=== PATIENT | male | born 1965 | race Caucasian/White ===

== ENCOUNTER 2020-11-15 20:12 | Observation (INO) ==
[2020-11-15] MEDS ORDERED: SODIUM CHLORIDE 0.9% 1000ML 1,000 ML IV STA (20:41)
--- NOTE | 2020-11-15 20:48 | Emergency Department Note ---
History of Present Illness General Chief complaint: Rectal Bleed Stated complaint: BLEEDING FROM BUTT Time Seen by Provider: 11/15/20 20:32 Source: patient Mode of arrival: ambulatory Limitations: no limitations History of Present Illness This patient comes in having rectal bleeding. 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 He went to bed and slept today till noon he had a bowel movement today that was not soft and had just a small amount of blood on the paper mostly. He has a history of diverticulitis and started taking antibiotics yesterday and he feels like he is actually doing a lot better. He has some minimal right-sided abdominal discomfort. Denies chest pain or shortness of breath he said the Covid vaccine no lightheadedness or dizziness. He is on no blood thinners. No abdominal surgery. No injury. No sick contacts. No travel. He does have a history of gastric ulcers and says that he has been using NSAIDs recently Home Medications Medication Instructions Recorded Confirmed Type albuterol sulfate 90 mcg/actuation 1 - 2 puff INHALATION DIRECTED 11/15/20 11/15/20 History aerosol inhaler (Ventolin HFA) PRN amoxicillin 875 mg-potassium 1 tab PO BID 11/15/20 11/15/20 History clavulanate 125 mg tablet (Augmentin) cetirizine 10 mg tablet (Allergy 10 mg PO DAILY 11/15/20 11/15/20 History Relief (cetirizine)) diclofenac sodium 75 mg 75 mg PO BID 11/15/20 11/15/20 History tablet,delayed release fluticasone propionate 220 1 puff INHALATION BID 11/15/20 11/15/20 History mcg/actuation HFA aerosol inhaler (Flovent HFA) lorazepam 0.5 mg tablet (Ativan) 0.5 mg PO DIRECTED PRN 11/15/20 11/15/20 History melatonin 5 mg tablet 5 mg PO DAILY 11/15/20 11/15/20 History montelukast 10 mg tablet 10 mg PO DAILY 11/15/20 11/15/20 History (Singulair) simvastatin 10 mg tablet 10 mg PO DAILY 11/15/20 11/15/20 History sodium chloride 0.65 % nasal spray 2 spray INTRANASAL DIRECTED PRN 11/15/20 11/15/20 History aerosol (Saline Nasal) umeclidinium 62.5 mcg-vilanterol 1 inh INHALATION DAILY 11/15/20 11/15/20 History 25 mcg/actuation powdr for inhalation (Anoro Ellipta) Allergies Allergy/AdvReac Type Severity Reaction Status Date / Time mold Allergy Intermediate CAN Verified 11/15/20 21:27 TRIGGER ASTHMA ATTACK POLLEN Allergy Intermediate CAN Uncoded 11/15/20 21:27 TRIGGER ASTHMA ATTACK Past Med/Surg History Social History Smoking Status: Current every day smoker Tobacco Type: Cigarettes Feels Safe at Home: Yes Immunizations: Past medical historydiverticulitis Social history he works night shifts Review of Systems A total of 10 systems reviewed and were otherwise negative Physical Exam Vital Signs Vital Signs - 24 hr 11/15/20 20:22 11/15/20 20:55 11/15/20 20:56 Temperature 36.4 C L Temperature Source Temporal Artery Scan Pulse Rate 90 86 Pulse Rate [Finger] 86 Pulse Rate from SpO2 Sensor Respiratory Rate 18 18 18 Respiratory Effort / Characteristics Non-Labored Spontaneous Non-Labored Spontaneous Respiratory Depth Normal Normal Blood Pressure 161/90 H Blood Pressure [Left Arm] 158/86 H Blood Pressure Mean 113 Blood Pressure Mean [Left Arm] 110 Pulse Oximetry 97 98 98 Oxygen Delivery Method Room Air Room Air Room Air Sepsis Recent Fever Within 48 Hours No Sepsis New/Unexplained Change in Mental Status No Sepsis Action Taken by Nursing No Action Required 11/15/20 21:00 11/15/20 21:49 11/15/20 22:00 Temperature Temperature Source Pulse Rate 83 86 82 Pulse Rate [Finger] Pulse Rate from SpO2 Sensor 85 88 83 Respiratory Rate 21 20 16 Respiratory Effort / Characteristics Respiratory Depth Blood Pressure 144/76 H 159/91 H 149/95 H Blood Pressure [Left Arm] Blood Pressure Mean 98 113 113 Blood Pressure Mean [Left Arm] Pulse Oximetry 99 97 98 Oxygen Delivery Method Room Air Sepsis Recent Fever Within 48 Hours Sepsis New/Unexplained Change in Mental Status Sepsis Action Taken by Nursing 11/15/20 22:30 Temperature Temperature Source Pulse Rate 79 Pulse Rate [Finger] Pulse Rate from SpO2 Sensor 79 Respiratory Rate 18 Respiratory Effort / Characteristics Respiratory Depth Blood Pressure 138/84 Blood Pressure [Left Arm] Blood Pressure Mean 102 Blood Pressure Mean [Left Arm] Pulse Oximetry 97 Oxygen Delivery Method Sepsis Recent Fever Within 48 Hours Sepsis New/Unexplained Change in Mental Status Sepsis Action Taken by Nursing General: Well developed well nourished not ill-appearing middle-age male who appears in no acute distress, breathing comfortably on room air. Normal speech HEENT: Normal cephalic atraumatic. Pupils are equal round and reactive to light. Extraocular movements are intact. Oropharynx is pink with moist mucous membranes. No swelling of the mouth lips or tongue. Neck: Supple with a midline trachea. No meningeal signs or stiffness, no JVD or bruits. No Stridor. Chest: Clear to auscultation bilaterally. No wheezes or rhonchi. No increased work of breathing. Heart: Regular rate and rhythm without murmurs or gallops. Abdomen: Soft nontender, nondistended without rebound guarding or rigidity. Rectal: No external lesions or hemorrhoids seen or felt on exam. Stool was black with some maroon and was guaiac positive. Extremities: No cyanosis clubbing or edema. No calf tenderness or assymetry Spine/Back. Non tender to palpation. No CVA tenderness Skin: Good turgor without rashes. Neurologic exam: Cranial nerves two through 12 are intact. Motor and sensation are intact and symmetrical throughout. Course Administered Medications Discontinued Medications Sodium Chloride (Nss 1000ml) 1,000 mls @ 999 mls/hr IV .Q1H1M STA Stop: 11/15/20 21:41 Last Infusion: 11/15/20 22:12 Dose: 0 mls/hr Documented by: [id number] Admin: 11/15/20 20:54 Dose: 999 mls/hr Documented by: [id number] Pantoprazole Sodium 80 mg/ (Dextrose) 100 mls @ 400 mls/hr IV ONE STA Stop: 11/15/20 23:06 Last Infusion: 11/16/20 00:06 Dose: 0 mls/hr Documented by: [id number] Admin: 11/15/20 23:14 Dose: 400 mls/hr Documented by: [id number] Ioversol (Optiray 320 100ml) 94 ml IV ONCE ONE Stop: 11/15/20 21:29 Last Admin: 11/15/20 21:29 Dose: 1 ml Documented by: [id number] Medical Decision Making Differential Diagnosis GI bleed, diverticulitis, colitis, dehydration, trauma, Covid Medical Records Attestation: I reviewed the patient's medical records. Home Medications Current Medication List: was personally reviewed by me Laboratory Data Attestation: I reviewed the patient's lab results. Result diagrams: 11/16/20 00:07 11/15/20 20:55 Lab Results 11/15/20 11/15/20 11/15/20 Range/Units 20:44 20:55 23:05 WBC 7.77 (4.8-10.8) K/uL RBC 3.56 L (4.7-6.1) M/uL Hgb 11.3 L (14.0-18.0) g/dL Hct 33.1 L (42-52) % MCV 93.0 (80-100) fL MCH 31.7 (25-34) pg MCHC 34.1 (32-36) g/dL RDW Std Deviation 42.8 (36.4-46.3) fL RDW Coeff of Loki 12.5 (11.5-14.5) % Plt Count 246 (130-400) K/uL MPV 9.1 (7.4-10.4) fL Immature Gran % (Auto) 0.1 % Neut % (Auto) 59.3 % Lymph % (Auto) 29.1 % [place] % (Auto) 7.1 % Eos % (Auto) 4.0 % Baso % (Auto) 0.4 % Reticulocyte % (Auto) (0.5-2.0) % Neut # (Auto) 4.61 (1.4-6.5) K/uL Lymph # (Auto) 2.26 (1.2-3.4) K/uL [place] # (Auto) 0.55 (0.11-0.59) K/uL Eos # (Auto) 0.31 (0-0.5) K/uL Baso # (Auto) 0.03 (0-0.2) K/uL Reticulocyte # (0.02-0.10) 10^6/uL Immature Gran # (Auto) 0.01 (0.00-0.02) K/uL PT (9.0-12.0) Seconds INR (0.9-1.1) Sodium 140 (136-145) mmol/L Potassium 3.8 (3.5-5.1) mmol/L Chloride 106 (98-107) mmol/L Carbon Dioxide 28 (21-32) mmol/L Anion Gap 6.0 (3-11) BUN 12 (7-18) mg/dl Creatinine 0.83 (0.6-1.4) mg/dl Est Cr Clr Drug Dosing 105.1 ml/min Est GFR ( Amer) 115.6 ml/min Est GFR (Non-Af Amer) 99.8 ml/min BUN/Creatinine Ratio 13.9 (10-20) Glucose 112 H (70-99) mg/dl Calcium 8.7 (8.5-10.1) mg/dl Magnesium 2.5 H (1.8-2.4) mg/dl Iron (35-175) mcg/dl TIBC (250-450) mcg/dl Transferrin (200-360) mg/dl Ferritin (8-388) ng/ml Total Bilirubin 0.5 (0.2-1) mg/dl AST 34 (15-37) U/L ALT 56 (12-78) U/L Alkaline Phosphatase 40 L (45-117) U/L Total Protein 6.9 (6.4-8.2) gm/dl Albumin 3.5 (3.4-5.0) gm/dl Globulin 3.4 (2.5-4.0) gm/dl Albumin/Globulin Ratio 1.0 (0.9-2) Lipase 187 (73-393) U/L Urine Color Urine Appearance (Clear) Urine pH (4.5-7.5) Ur Specific [place] (1.000-1.030) Urine Protein (Negative) Urine Glucose (UA) (Negative) Urine Ketones (Negative) Urine Blood (Negative) Urine Nitrite (Negative) Urine Bilirubin (Negative) Urine Urobilinogen (Negative) Ur Leukocyte Esterase (Negative) COVID-19 Eval Order SARS-CoV-2 (PCR) (Negative) Blood Type O Positive Antibody Screen NEGATIVE Crossmatch See Detail 11/15/20 11/15/20 11/15/20 Range/Units 23:06 23:06 23:30 WBC (4.8-10.8) K/uL RBC (4.7-6.1) M/uL Hgb (14.0-18.0) g/dL Hct (42-52) % MCV (80-100) fL MCH (25-34) pg MCHC (32-36) g/dL RDW Std Deviation (36.4-46.3) fL RDW Coeff of Loki (11.5-14.5) % Plt Count (130-400) K/uL MPV (7.4-10.4) fL Immature Gran % (Auto) % Neut % (Auto) % Lymph % (Auto) % [place] % (Auto) % Eos % (Auto) % Baso % (Auto) % Reticulocyte % (Auto) (0.5-2.0) % Neut # (Auto) (1.4-6.5) K/uL Lymph # (Auto) (1.2-3.4) K/uL [place] # (Auto) (0.11-0.59) K/uL Eos # (Auto) (0-0.5) K/uL Baso # (Auto) (0-0.2) K/uL Reticulocyte # (0.02-0.10) 10^6/uL Immature Gran # (Auto) (0.00-0.02) K/uL PT (9.0-12.0) Seconds INR (0.9-1.1) Sodium (136-145) mmol/L Potassium (3.5-5.1) mmol/L Chloride (98-107) mmol/L Carbon Dioxide (21-32) mmol/L Anion Gap (3-11) BUN (7-18) mg/dl Creatinine (0.6-1.4) mg/dl Est Cr Clr Drug Dosing ml/min Est GFR ( Amer) ml/min Est GFR (Non-Af Amer) ml/min BUN/Creatinine Ratio (10-20) Glucose (70-99) mg/dl Calcium (8.5-10.1) mg/dl Magnesium (1.8-2.4) mg/dl Iron (35-175) mcg/dl TIBC (250-450) mcg/dl Transferrin (200-360) mg/dl Ferritin (8-388) ng/ml Total Bilirubin (0.2-1) mg/dl AST (15-37) U/L ALT (12-78) U/L Alkaline Phosphatase (45-117) U/L Total Protein (6.4-8.2) gm/dl Albumin (3.4-5.0) gm/dl Globulin (2.5-4.0) gm/dl Albumin/Globulin Ratio (0.9-2) Lipase (73-393) U/L Urine Color Yellow Urine Appearance Clear (Clear) Urine pH 7.0 (4.5-7.5) Ur Specific [place] 1.025 (1.000-1.030) Urine Protein Negative (Negative) Urine Glucose (UA) 1+ H (Negative) Urine Ketones Negative (Negative) Urine Blood Negative (Negative) Urine Nitrite Negative (Negative) Urine Bilirubin Negative (Negative) Urine Urobilinogen Negative (Negative) Ur Leukocyte Esterase Negative (Negative) COVID-19 Eval Order Covid19 at [facility] SARS-CoV-2 (PCR) NEGATIVE (Negative) Blood Type Antibody Screen Crossmatch 11/16/20 11/16/20 11/16/20 Range/Units 00:07 00:07 00:13 WBC (4.8-10.8) K/uL RBC (4.7-6.1) M/uL Hgb 10.2 L (14.0-18.0) g/dL Hct 29.7 L (42-52) % MCV (80-100) fL MCH (25-34) pg MCHC (32-36) g/dL RDW Std Deviation (36.4-46.3) fL RDW Coeff of Loki (11.5-14.5) % Plt Count (130-400) K/uL MPV (7.4-10.4) fL Immature Gran % (Auto) % Neut % (Auto) % Lymph % (Auto) % [place] % (Auto) % Eos % (Auto) % Baso % (Auto) % Reticulocyte % (Auto) 2.4 H (0.5-2.0) % Neut # (Auto) (1.4-6.5) K/uL Lymph # (Auto) (1.2-3.4) K/uL [place] # (Auto) (0.11-0.59) K/uL Eos # (Auto) (0-0.5) K/uL Baso # (Auto) (0-0.2) K/uL Reticulocyte # 0.08 (0.02-0.10) 10^6/uL Immature Gran # (Auto) (0.00-0.02) K/uL PT 10.4 (9.0-12.0) Seconds INR 1.0 (0.9-1.1) Sodium (136-145) mmol/L Potassium (3.5-5.1) mmol/L Chloride (98-107) mmol/L Carbon Dioxide (21-32) mmol/L Anion Gap (3-11) BUN (7-18) mg/dl Creatinine (0.6-1.4) mg/dl Est Cr Clr Drug Dosing ml/min Est GFR ( Amer) ml/min Est GFR (Non-Af Amer) ml/min BUN/Creatinine Ratio (10-20) Glucose (70-99) mg/dl Calcium (8.5-10.1) mg/dl Magnesium (1.8-2.4) mg/dl Iron (35-175) mcg/dl TIBC (250-450) mcg/dl Transferrin (200-360) mg/dl Ferritin (8-388) ng/ml Total Bilirubin (0.2-1) mg/dl AST (15-37) U/L ALT (12-78) U/L Alkaline Phosphatase (45-117) U/L Total Protein (6.4-8.2) gm/dl Albumin (3.4-5.0) gm/dl Globulin (2.5-4.0) gm/dl Albumin/Globulin Ratio (0.9-2) Lipase (73-393) U/L Urine Color Urine Appearance (Clear) Urine pH (4.5-7.5) Ur Specific [place] (1.000-1.030) Urine Protein (Negative) Urine Glucose (UA) (Negative) Urine Ketones (Negative) Urine Blood (Negative) Urine Nitrite (Negative) Urine Bilirubin (Negative) Urine Urobilinogen (Negative) Ur Leukocyte Esterase (Negative) COVID-19 Eval Order SARS-CoV-2 (PCR) (Negative) Blood Type Antibody Screen Crossmatch 11/16/20 Range/Units 00:13 WBC (4.8-10.8) K/uL RBC (4.7-6.1) M/uL Hgb (14.0-18.0) g/dL Hct (42-52) % MCV (80-100) fL MCH (25-34) pg MCHC (32-36) g/dL RDW Std Deviation (36.4-46.3) fL RDW Coeff of Loki (11.5-14.5) % Plt Count (130-400) K/uL MPV (7.4-10.4) fL Immature Gran % (Auto) % Neut % (Auto) % Lymph % (Auto) % [place] % (Auto) % Eos % (Auto) % Baso % (Auto) % Reticulocyte % (Auto) (0.5-2.0) % Neut # (Auto) (1.4-6.5) K/uL Lymph # (Auto) (1.2-3.4) K/uL [place] # (Auto) (0.11-0.59) K/uL Eos # (Auto) (0-0.5) K/uL Baso # (Auto) (0-0.2) K/uL Reticulocyte # (0.02-0.10) 10^6/uL Immature Gran # (Auto) (0.00-0.02) K/uL PT (9.0-12.0) Seconds INR (0.9-1.1) Sodium (136-145) mmol/L Potassium (3.5-5.1) mmol/L Chloride (98-107) mmol/L Carbon Dioxide (21-32) mmol/L Anion Gap (3-11) BUN (7-18) mg/dl Creatinine (0.6-1.4) mg/dl Est Cr Clr Drug Dosing ml/min Est GFR ( Amer) ml/min Est GFR (Non-Af Amer) ml/min BUN/Creatinine Ratio (10-20) Glucose (70-99) mg/dl Calcium (8.5-10.1) mg/dl Magnesium (1.8-2.4) mg/dl Iron 121 (35-175) mcg/dl TIBC 300 (250-450) mcg/dl Transferrin 230 (200-360) mg/dl Ferritin 280.0 (8-388) ng/ml Total Bilirubin (0.2-1) mg/dl AST (15-37) U/L ALT (12-78) U/L Alkaline Phosphatase (45-117) U/L Total Protein (6.4-8.2) gm/dl Albumin (3.4-5.0) gm/dl Globulin (2.5-4.0) gm/dl Albumin/Globulin Ratio (0.9-2) Lipase (73-393) U/L Urine Color Urine Appearance (Clear) Urine pH (4.5-7.5) Ur Specific [place] (1.000-1.030) Urine Protein (Negative) Urine Glucose (UA) (Negative) Urine Ketones (Negative) Urine Blood (Negative) Urine Nitrite (Negative) Urine Bilirubin (Negative) Urine Urobilinogen (Negative) Ur Leukocyte Esterase (Negative) COVID-19 Eval Order SARS-CoV-2 (PCR) (Negative) Blood Type Antibody Screen Crossmatch Imaging Data Attestation: I personally reviewed and interpreted this imaging study as follows: Radiologist's Impression: Abdomen/Pelvis CT 11/15/20 20:48 CT abd pelvis IV con only CLINICAL INDICATION: [place] ^GI bleed, eval colitis/divert. TECHNIQUE: Helical axial images of the abdomen and pelvis were obtained and displayed at 5 and 1 mm intervals. Automated dose lowering techniques and/or adjustment according to patient size were utilized for this exam. This exam was performed with intravenous contrast. COMPARISON: None available at the time of this dictation. FINDINGS: Lower chest: No acute abnormality Liver: Unremarkable. No focal lesions are seen. Gallbladder and biliary tree: No calcified gallstones. Normal caliber wall. No intra- or extrahepatic biliary ductal dilation. Pancreas: Unremarkable, no focal lesions. Spleen: Unremarkable. Adrenals: Unremarkable. Kidneys and ureters: Unremarkable. Bladder: Unremarkable. Reproductive organs: Unremarkable. Bowel: Diverticulosis is seen without evidence of diverticulitis. The appendix is unremarkable. Lymph nodes Retroperitoneal: Unremarkable. Mesenteric: Unremarkable. Pelvic: Unremarkable. Peritoneum: Normal Vessels: Unremarkable. Abdominal wall: Left fat containing inguinal hernia. Bones: Degenerative changes in the visualized spine. IMPRESSION: No evidence of acute abnormality. Diverticulosis is seen without evidence of diverticulitis. No evidence of colitis. ACT 112: Negative or not required by law. Electronically signed by: David Smith M.D. 11/15/2020 9:49 PM ECG Data Attestation: I personally reviewed and interpreted this ECG as follows: Indication: + weakness Rate (beats per minute): 86 Rhythm: + normal sinus ECG Intervals/blocks: + Normal QRS, + Normal QT and + Normal [place] ECG [place]: + Normal ECG ST segments: + Nonspecific ST abnormalities ECG Findings: no PACs or no PVCs Comparison ECG Date: no prior available Prescription Drug Monitoring [place] Drug Monitoring Program reviewed and no issues identified MDM Narrative This patient comes in as described above. He has had some rectal bleeding seems actually doing better today just had one bowel movement with a small amount of blood. He has a history of diverticulitis. IV access was established blood, work was obtained. I did a CAT scan of the abdomen as well. He was reassessed frequently. He remained medically stable. I was concerned however when I did a rectal exam his stool was melanotic with some maroon as well. It was guaiac positive. He did tell me he has a history of peptic ulcer disease has been using NSAIDs. CAT scan was unremarkable. Hemoglobin is 11 although I do not have an old one for comparison. He has no significant electrolyte and or metabolic abnormalities. He has remained stable. He was typed and crossed for blood in the event that he would need it. Given his melanotic stool and symptoms I do think he needs to be admitted for GI work-up and observation. He was given 80 of Protonix IV as well. I did consult Dr. Brooks to see him in ER for these measures. Covid testing was done and was HEAD: No headache, dizziness, or head injury. Continuous cardiac monitoring: Orders placed in EMR for continuous cardiac monitoring. Upon my interpretation patient was noted to be normal sinus rhythm with a rate of 80 Impression & Plan Hematochezia, Melena, GI bleed, Lab test negative for COVID-19 virus Discharge Plan Visit Data Chief Complaint: Rectal Bleed Stated Complaint: BLEEDING FROM BUTT ED Provider: Mark Munoz Discharge Problem: Hematochezia, Melena, GI bleed, Lab test negative for COVID-19 virus Forms Stand Alone Forms: My [facility] [place] [employer] Prescriptions Prescriptions: No Action cetirizine [Allergy Relief (cetirizine)] 10 mg Tablet 10 mg PO DAILY RF: 0 simvastatin 10 mg Tablet 10 mg PO DAILY RF: 0 lorazepam [Ativan] 0.5 mg Tablet 0.5 mg PO DIRECTED PRN (Reason: Anxiety) RF: 0 diclofenac sodium 75 mg Tablet,Delayed Release (Dr/Ec) 75 mg PO BID RF: 0 montelukast [Singulair] 10 mg Tablet 10 mg PO DAILY RF: 0 Flovent HFA 220 mcg/actuation Hfa Aerosol Inhaler 1 puff INHALATION BID RF: 0 albuterol sulfate [Ventolin HFA] 90 mcg/actuation HFA aerosol inhaler 1 - 2 puff INHALATION DIRECTED PRN (Reason: Shortness Of Breath) RF: 0 amoxicillin-pot clavulanate [Augmentin] 875-125 mg Tablet 1 tab PO BID RF: 0 sodium chloride [Saline Nasal] 0.65 % Aerosol,[place] 2 spray INTRANASAL DIRECTED PRN (Reason: NASAL DRYNESS) RF: 0 melatonin 5 mg Tablet 5 mg PO DAILY RF: 0 Anoro Ellipta 62.5-25 mcg/actuation Blister With Device 1 inh INHALATION DAILY RF: 0 Referrals Referrals: PCP,NO [Physician] -
[2020-11-15 21:03] LABS: Basophils # (auto) 0.03 K/uL (0-0.2); Basophils % (auto) 0.4 %; Eosinophils # (auto) 0.31 K/uL (0-0.5); Hematocrit (blood only) 33.1 % (42-52); Hemoglobin 11.3 g/dL (14.0-18.0); Immature Granulocytes # (auto) 0.01 K/uL (0.00-0.02); Immature Granulocytes % (auto) 0.1 %; Lymphocytes # (auto) 2.26 K/uL (1.2-3.4); Lymphocytes % (auto) 29.1 %; Mean Corpuscular Hemoglobin 31.7 pg (25-34); Mean Corpuscular Hgb Conc 34.1 g/dL (32-36); Mean Platelet Volume 9.1 fL (7.4-10.4); Monocytes # (auto) 0.55 K/uL (0.11-0.59); Monocytes % (auto) 7.1 %; Neutrophils # (auto) 4.61 K/uL (1.4-6.5); Neutrophils % (auto) 59.3 %; Platelet Count 246 K/uL (130-400); RDW Coefficient of Variation 12.5 % (11.5-14.5); RDW Standard Deviation 42.8 fL (36.4-46.3); Red Blood Count 3.56 M/uL (4.7-6.1); White Blood Count 7.77 K/uL (4.8-10.8)
[2020-11-15 21:24] LABS: Albumin Level 3.5 gm/dl (3.4-5.0); BUN Creatinine Ratio 13.9 (10-20); Calcium 8.7 mg/dl (8.5-10.1); Creatinine Clr Calc Pharmacy 105.1 ml/min; Est GFR (African American) 115.6 ml/min; Est GFR (Non-African American) 99.8 ml/min; Potassium 3.8 mmol/L (3.5-5.1)
[2020-11-15 21:27] LABS: Bilirubin,Total 0.5 mg/dl (0.2-1); Globulin 3.4 gm/dl (2.5-4.0); Total Protein 6.9 gm/dl (6.4-8.2)
[2020-11-15] MEDS ORDERED: OPTIRAY 320 100ml IV ONE (21:28)
--- NOTE | 2020-11-15 21:50 | CT Scan Report ---
CT abd pelvis IV con only CLINICAL INDICATION: [place] ^GI bleed, eval colitis/divert. TECHNIQUE: Helical axial images of the abdomen and pelvis were obtained and displayed at 5 and 1 mm i ntervals. Automated dose lowering techniques and/or adjustment according to patient size were utilize d for this exam. This exam was performed with intravenous contrast. COMPARISON: None available at the time of this dictation. FINDINGS: Lower chest: No acute abnormality Liver: Unremarkable. No focal lesions are seen. Gallbladder and biliary tree: No calcified gallstones. Normal caliber wall. No intra- or extrahepatic biliary ductal dilation. Pancreas: Unremarkable, no focal lesions. Spleen: Unremarkable. Adrenals: Unremarkable. Kidneys and ureters: Unremarkable. Bladder: Unremarkable. Reproductive organs: Unremarkable. Bowel: Diverticulosis is seen without evidence of diverticulitis. The appendix is unremarkable. Lymph nodes Retroperitoneal: Unremarkable. Mesenteric: Unremarkable. Pelvic: Unremarkable. Peritoneum: Normal Vessels: Unremarkable. Abdominal wall: Left fat containing inguinal hernia. Bones: Degenerative changes in the visualized spine. IMPRESSION: No evidence of acute abnormality. Diverticulosis is seen without evidence of diverticulitis. No evide nce of colitis. ACT 112: Negative or not required by law. Electronically signed by: David Smith M.D. 11/15/2020 9:49 PM
[2020-11-15] MEDS ORDERED: SODIUM CHLORIDE 0.9% 250 ML IV PRN (22:52)
[2020-11-15] MEDS ORDERED: PANTOprazole 80 MG in DEXTROSE 5% 100 ML IV STA (22:52)
[2020-11-15 23:33] LABS: Magnesium 2.5 mg/dl (1.8-2.4)
[2020-11-15 23:54] LABS: Appearance Urine Clear (Clear); Bilirubin Urine Negative (Negative); Blood Urine Negative (Negative); Color Urine Yellow; Glucose Urine UA 1+ (Negative); Ketones Urine Negative (Negative); Leukocyte Esterase Urine Negative (Negative); Nitrite Urine Negative (Negative); Protein Urine Negative (Negative); Specific Gravity Urine 1.025 (1.000-1.030); Urobilinogen Urine Negative (Negative)
--- NOTE | 2020-11-16 00:02 | History & Physical Report ---
Date of Service November 16, 2020 Assessment & Plan (1) GI bleed: Plan: Multifactorial : UGIB (differentials include PUD, NSAID gastritis) L GIB (diverticular bleed) Anemia secondary to above HTN, slight elevated not on maintenance meds hyperlipidemia on statin Rx bronchial asthma, stable Hyperglycemia rule out DM Medical telemetry IV PPI for UGI B Patient counseled about adverse effects of NSAIDs on gastric mucosa. GI consult Re: GI bleed Anemia work-up, transfuse PRBC if hemoglobin less than 7 and or for symptomatic anemia Check hemoglobin A1c DVT prophylaxis. SCDs Re: GI bleed Full code Text document was generated using Pap[employer]ika voice recognition software. It may contain grammatical or spelling errors. Kindly contact undersigned for clarification of any documentation item in question. History of Present Illness Chief Complaint: Rectal bleeding Primary Care Provider: Maria T Lee History obtained from patient and records. Medical history significant for HTN, hyperlipidemia, bronchial asthma, allergic rhinitis, osteoarthritis, history of stomach ulcer, diverticulosis. 20 years ago patient had melanotic stools. EGD/colonoscopy at a hospital in [facility] showed stomach ulcers and diverticulosis. Patient was on Prevacid for a short time. 2 nights ago, patient noted multiple bloody bowel movements mixed with melanotic stool without abdominal pain. No fever, no chills, no chest pain, no S OB. No recent antibiotic Rx. Patient admits to taking daily diclofenac for right knee arthritis. Voluntary weight loss as per patient account. Patient self medicated with leftover Augmentin prescription at home. Patient consulted ER. Protonix bolus administered at the ER. 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 Allergies Allergy/AdvReac Type Severity Reaction Status Date / Time mold Allergy Intermediate CAN Verified 11/15/20 21:27 TRIGGER ASTHMA ATTACK POLLEN Allergy Intermediate CAN Uncoded 11/15/20 21:27 TRIGGER ASTHMA ATTACK Home Medications Medication Instructions Recorded Confirmed Type albuterol sulfate 90 mcg/actuation 1 - 2 puff INHALATION DIRECTED 11/15/20 11/15/20 History aerosol inhaler (Ventolin HFA) PRN amoxicillin 875 mg-potassium 1 tab PO BID 11/15/20 11/15/20 History clavulanate 125 mg tablet (Augmentin) cetirizine 10 mg tablet (Allergy 10 mg PO DAILY 11/15/20 11/15/20 History Relief (cetirizine)) diclofenac sodium 75 mg 75 mg PO BID 11/15/20 11/15/20 History tablet,delayed release fluticasone propionate 220 1 puff INHALATION BID 11/15/20 11/15/20 History mcg/actuation HFA aerosol inhaler (Flovent HFA) lorazepam 0.5 mg tablet (Ativan) 0.5 mg PO DIRECTED PRN 11/15/20 11/15/20 History melatonin 5 mg tablet 5 mg PO DAILY 11/15/20 11/15/20 History montelukast 10 mg tablet 10 mg PO DAILY 11/15/20 11/15/20 History (Singulair) simvastatin 10 mg tablet 10 mg PO DAILY 11/15/20 11/15/20 History sodium chloride 0.65 % nasal spray 2 spray INTRANASAL DIRECTED PRN 11/15/20 11/15/20 History aerosol (Saline Nasal) umeclidinium 62.5 mcg-vilanterol 1 inh INHALATION DAILY 11/15/20 11/15/20 History 25 mcg/actuation powdr for inhalation (Anoro Ellipta) Past Med/Surg History Social History Smoking Status: Former smoker Tobacco Type: Cigarettes Hx Alcohol Use: No Hx Substance Use: No Preferred Language: Albanian Communication Ability: Effective 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 Beliefs That Will Affect Care: None Current Living Situation: Alone Other Information That Helps Us Care for You: No Feels Safe at Home: Yes Safety Concerns: Feels Safe At This Time Assistive Devices: Glasses Review of Systems Review of Systems: As per HPI, all 10 systems reviewed, all other ROS negative Physical Exam Physical Exam: GENERAL: Comfortable, pleasant, no respiratory distress SKIN: Pallor, warm HEENT: Pale palpebral conjunctivae, no ptosis, dry buccal mucosa NECK : Supple, no tenderness CHEST : CTA, no tenderness HEART : RRR, no obvious murmurs ABDOMEN: Some distention, nontender EXTREMITIES : No LE swelling, minimal right knee tenderness, no other conspi cuous deformities noted NEUROLOGIC : Coherent, no facial asymmetry, no other gross focality Results & Data Results & Data ([facility]) Vital Signs (Past 12 Hours) Vital Signs Temp Pulse Pulse Resp BP BP Pulse Ox 11/15/20 22:30 79 18 138/84 97 11/15/20 22:00 82 16 149/95 H 98 11/15/20 21:49 86 20 159/91 H 97 11/15/20 21:00 83 21 144/76 H 99 11/15/20 20:56 86 18 158/86 H 98 11/15/20 20:55 86 18 98 11/15/20 20:22 36.4 C L 90 18 161/90 H 97 Laboratory Results Laboratory Results WBC 7.77 K/uL (4.8-10.8) 11/15/20 20:44 RBC 3.56 M/uL (4.7-6.1) L 11/15/20 20:44 Hgb 11.3 g/dL (14.0-18.0) L 11/15/20 20:44 Hct 33.1 % (42-52) L 11/15/20 20:44 MCV 93.0 fL (80-100) 11/15/20 20:44 MCH 31.7 pg (25-34) 11/15/20 20:44 MCHC 34.1 g/dL (32-36) 11/15/20 20:44 RDW Std Deviation 42.8 fL (36.4-46.3) 11/15/20 20:44 RDW Coeff of Loki 12.5 % (11.5-14.5) 11/15/20 20:44 Plt Count 246 K/uL (130-400) 11/15/20 20:44 MPV 9.1 fL (7.4-10.4) 11/15/20 20:44 Immature Gran % (Auto) 0.1 % 11/15/20 20:44 Neut % (Auto) 59.3 % 11/15/20 20:44 Lymph % (Auto) 29.1 % 11/15/20 20:44 [place] % (Auto) 7.1 % 11/15/20 20:44 Eos % (Auto) 4.0 % 11/15/20 20:44 Baso % (Auto) 0.4 % 11/15/20 20:44 Neut # (Auto) 4.61 K/uL (1.4-6.5) 11/15/20 20:44 Lymph # (Auto) 2.26 K/uL (1.2-3.4) 11/15/20 20:44 [place] # (Auto) 0.55 K/uL (0.11-0.59) 11/15/20 20:44 Eos # (Auto) 0.31 K/uL (0-0.5) 11/15/20 20:44 Baso # (Auto) 0.03 K/uL (0-0.2) 11/15/20 20:44 Immature Gran # (Auto) 0.01 K/uL (0.00-0.02) 11/15/20 20:44 Sodium 140 mmol/L (136-145) 11/15/20 20:55 Potassium 3.8 mmol/L (3.5-5.1) 11/15/20 20:55 Chloride 106 mmol/L (98-107) 11/15/20 20:55 Carbon Dioxide 28 mmol/L (21-32) 11/15/20 20:55 Anion Gap 6.0 (3-11) 11/15/20 20:55 BUN 12 mg/dl (7-18) 11/15/20 20:55 Creatinine 0.83 mg/dl (0.6-1.4) 11/15/20 20:55 Est Cr Clr Drug Dosing 105.1 ml/min 11/15/20 20:55 Est GFR ( Amer) 115.6 ml/min 11/15/20 20:55 Est GFR (Non-Af Amer) 99.8 ml/min 11/15/20 20:55 BUN/Creatinine Ratio 13.9 (10-20) 11/15/20 20:55 Glucose 112 mg/dl (70-99) H 11/15/20 20:55 Calcium 8.7 mg/dl (8.5-10.1) 11/15/20 20:55 Magnesium 2.5 mg/dl (1.8-2.4) H 11/15/20 20:55 Total Bilirubin 0.5 mg/dl (0.2-1) 11/15/20 20:55 AST 34 U/L (15-37) 11/15/20 20:55 ALT 56 U/L (12-78) 11/15/20 20:55 Alkaline Phosphatase 40 U/L (45-117) L 11/15/20 20:55 Total Protein 6.9 gm/dl (6.4-8.2) 11/15/20 20:55 Albumin 3.5 gm/dl (3.4-5.0) 11/15/20 20:55 Globulin 3.4 gm/dl (2.5-4.0) 11/15/20 20:55 Albumin/Globulin Ratio 1.0 (0.9-2) 11/15/20 20:55 Lipase 187 U/L (73-393) 11/15/20 20:55 Urine Color Yellow 11/15/20 23:30 Urine Appearance Clear (Clear) 11/15/20 23:30 Urine pH 7.0 (4.5-7.5) 11/15/20 23:30 Ur Specific [place] 1.025 (1.000-1.030) 11/15/20 23:30 Urine Protein Negative (Negative) 11/15/20 23:30 Urine Glucose (UA) 1+ (Negative) H 11/15/20 23:30 Urine Ketones Negative (Negative) 11/15/20 23:30 Urine Blood Negative (Negative) 11/15/20 23:30 Urine Nitrite Negative (Negative) 11/15/20 23:30 Urine Bilirubin Negative (Negative) 11/15/20 23:30 Urine Urobilinogen Negative (Negative) 11/15/20 23:30 Ur Leukocyte Esterase Negative (Negative) 11/15/20 23:30 COVID-19 Eval Order Covid19 at [facility] 11/15/20 23:06 Crossmatch See Detail 11/15/20 23:05 Impressions Abdomen/Pelvis CT 11/15/20 20:48 CT abd pelvis IV con only CLINICAL INDICATION: MT ^GI bleed, eval colitis/divert. TECHNIQUE: Helical axial images of the abdomen and pelvis were obtained and displayed at 5 and 1 mm intervals. Automated dose lowering techniques and/or adjustment according to patient size were utilized for this exam. This exam was performed with intravenous contrast. COMPARISON: None available at the time of this dictation. FINDINGS: Lower chest: No acute abnormality Liver: Unremarkable. No focal lesions are seen. Gallbladder and biliary tree: No calcified gallstones. Normal caliber wall. No intra- or extrahepatic biliary ductal dilation. Pancreas: Unremarkable, no focal lesions. Spleen: Unremarkable. Adrenals: Unremarkable. Kidneys and ureters: Unremarkable. Bladder: Unremarkable. Reproductive organs: Unremarkable. Bowel: Diverticulosis is seen without evidence of diverticulitis. The appendix is unremarkable. Lymph nodes Retroperitoneal: Unremarkable. Mesenteric: Unremarkable. Pelvic: Unremarkable. Peritoneum: Normal Vessels: Unremarkable. Abdominal wall: Left fat containing inguinal hernia. Bones: Degenerative changes in the visualized spine. IMPRESSION: No evidence of acute abnormality. Diverticulosis is seen without evidence of diverticulitis. No evidence of colitis. ACT 112: Negative or not required by law. Electronically signed by: David Smith M.D. 11/15/2020 9:49 PM Diagnostic Findings EKG as per my interpretation: Rate 85, NSR, LAD, LAFB no ischemia (1) GI bleed GI bleed type/associated pathology: melena Qualified Code(s): K92.1 - Melena
[2020-11-16] MEDS ORDERED: PROMETHAZINE HCL 12.5 MG in SODIUM CHLORIDE 0.9% 50 ML IV PRN (00:09)
[2020-11-16] MEDS ORDERED: oxyCODONE HCL IR 5 MG TAB (IMMEDIATE RELEASE) PO PRN (00:09)
[2020-11-16] MEDS ORDERED: LORazepam 0.5 MG/1 ML VIAL IV PRN (00:09)
[2020-11-16 00:22] LABS: Hematocrit (blood only) 29.7 % (42-52); Hemoglobin 10.2 g/dL (14.0-18.0)
[2020-11-16 00:23] LABS: Reticulocyte % 2.4 % (0.5-2.0); Reticulocytes # 0.08 10^6/uL (0.02-0.10)
[2020-11-16 00:35] LABS: Prothrombin Time 10.4 Seconds (9.0-12.0)
[2020-11-16] MEDS ORDERED: ACETAMINOPHEN 325 MG TAB PO PRN (01:28)
[2020-11-16] MEDS ORDERED: ALBUT/IPRATROP 3MG/0.5MG NEB 3 ML VIAL NEB PRN (01:28)
[2020-11-16] MEDS ORDERED: SODIUM CHLORIDE 0.65% NA SOLN 45 ML (OCEAN) PRN (01:28)
[2020-11-16 01:34] LABS: Folate (Folic Acid) > 20.00 ng/ml (>5.38); Vitamin B12 379 pg/ml (193-986)
[2020-11-16] MEDS: LACTATED RINGER'S 1,000 ML IV SCH ×2 (01:58→21:06)
[2020-11-16] MEDS: PANTOprazole 40 MG in DEXTROSE 5% 100 ML IV SCH ×5 (03:29→22:27)
[2020-11-16 07:03] LABS: Basophils # (auto) 0.02 K/uL (0-0.2); Basophils % (auto) 0.3 %; Eosinophils # (auto) 0.26 K/uL (0-0.5); Eosinophils % (auto) 3.7 %; Hematocrit (blood only) 30.6 % (42-52); Hemoglobin 10.4 g/dL (14.0-18.0); Immature Granulocytes # (auto) 0.02 K/uL (0.00-0.02); Immature Granulocytes % (auto) 0.3 %; Lymphocytes # (auto) 2.15 K/uL (1.2-3.4); Lymphocytes % (auto) 30.4 %; Mean Corpuscular Hemoglobin 31.9 pg (25-34); Mean Corpuscular Volume 93.9 fL (80-100); Mean Platelet Volume 9.3 fL (7.4-10.4); Monocytes # (auto) 0.58 K/uL (0.11-0.59); Monocytes % (auto) 8.2 %; Neutrophils # (auto) 4.05 K/uL (1.4-6.5); Neutrophils % (auto) 57.1 %; Platelet Count 235 K/uL (130-400); RDW Coefficient of Variation 12.6 % (11.5-14.5); RDW Standard Deviation 43.1 fL (36.4-46.3); Red Blood Count 3.26 M/uL (4.7-6.1); White Blood Count 7.08 K/uL (4.8-10.8)
[2020-11-16] MEDS: FLUTICASONE FUROATE 200MCG 14 PUFFS/INHALER INH SCH (07:40)
[2020-11-16] MEDS: CETIRIZINE HCL 10 MG TABLET PO SCH (07:40)
[2020-11-16] MEDS: UMECLIDINIUM/VILANTEROL 62.5/25MCG 7 PUFFS/INHALER INH SCH (07:40)
[2020-11-16] MEDS: MONTELUKAST SODIUM 10 MG TABLET PO SCH (07:41)
[2020-11-16] MEDS: SIMVASTATIN 10 MG TAB PO SCH (07:41)
[2020-11-16] MEDS ORDERED: MELATONIN 3 MG TAB PO SCH (09:00)
[2020-11-16] MEDS ORDERED: PANTOprazole 40 MG in SYRINGE 0 ML IV SCH (09:00)
--- NOTE | 2020-11-16 10:09 | Hospitalist Progress Note ---
Date of Service November 16, 2020 Assessment & Plan (1) GI bleed: Plan: Multifactorial : UGIB (differentials include PUD, NSAID gastritis) LGIB (diverticular bleed) -- Hg 11.3 to 10.4 repeat at 12 noon -- NPO Protonix GI consult Anemia secondary to above --- monitor HTN, slight elevated not on maintenance meds hyperlipidemia on statin Rx bronchial asthma, stable Hyperglycemia rule out DM -- a1c pending DVT prophylaxis. SCDs Re: GI bleed Full code Disposition anticipate d/c home when medically stable Admission and Anticipated Discharge Date Admission Date: November 16, 2020 Subjective ff up for GI bleed seen resting in bed, comfortable in good spirits states he feels fine overall denies abdominal pain ,nausea no BM overnight no chest pain, dyspnea, palpitations, dizziness no other symptoms Review of Systems Review of Systems: all noted and negative except for above Physical Exam Physical Exam: General- oriented x 3, not in distress, speaks in sentences with no effort or accessory muscle use Head- atraumatic Eyes- PERRL, EOMI, anicteric ENT- oropharynx clear Neck- supple, no JVD, no adenopathy, no thyromegaly; carotids +2/2, no bruits appreciated Lungs- clear to auscultation bilaterally, no rales/wheezes Heart- normal rate, regular rhythm; no murmur, no gallop, no rub appreciated Abdomen- normal bowel sounds, nondistended, soft, nontender, no masses or hepatosplenomegaly Extremities- no pretibial edema, no calf tenderness; peripheral pulses intact Neuro- alert, oriented x 3; CN 2-12 grossly intact; motor 5/5 bilaterally;sensation 100% on all extremities; no other gross focal neurologic deficits Skin- warm & dry Results & Data Results & Data ([facility]) Vital Signs (Past 12 Hours) Vital Signs Temp Pulse Pulse Resp BP BP Pulse Ox 11/16/20 09:41 84 11/16/20 07:16 36.8 C 75 18 137/82 96 11/16/20 02:22 81 11/16/20 01:34 36.9 C 90 18 147/81 H 99 11/16/20 01:00 76 17 149/92 H 96 11/16/20 00:30 76 22 133/83 96 11/16/20 00:00 82 19 144/100 H 96 10/02/21 23:32 87 19 145/86 H 98 11/15/20 23:00 85 16 144/95 H 97 11/15/20 22:30 79 18 138/84 97 all noted and reviewed including below (1) GI bleed GI bleed type/associated pathology: melena Qualified Code(s): K92.1 - Melena
[2020-11-16] MEDS: FLUTICASONE PROPIONATE NA SPR 16 GM BTL SCH (10:12)
[2020-11-16 12:03] LABS: Hematocrit (blood only) 31.1 % (42-52); Hemoglobin 10.4 g/dL (14.0-18.0)
[2020-11-16 18:02] LABS: Hematocrit (blood only) 31.3 % (42-52); Hemoglobin 10.6 g/dL (14.0-18.0)
--- NOTE | 2020-11-16 19:50 | Electrocardiogram Report ---
Test Reason : Blood Pressure : / mmHG Vent. Rate : 086 BPM Atrial Rate : 086 BPM P-R Int : 134 ms QRS Dur : 104 ms QT Int : 390 ms P-R-T Axes : 042 -52 001 degrees QTc Int : 466 ms Normal sinus rhythm Left anterior fascicular block Nonspecific ST abnormality Abnormal ECG No previous ECGs available Confirmed by Jarrett Morrissey ([id number]) on 11/16/2020 7:49:51 PM Referred By: Mark Munoz Confirmed By:Jarrett Morrissey
[2020-11-16] MEDS ORDERED: POTASSIUM CHLORIDE CRTAB 20 MEQ TABCR PO STA (20:24)
[2020-11-16 20:46] LABS: BUN Creatinine Ratio 8.1 (10-20); Calcium 8.3 mg/dl (8.5-10.1); Creatinine Clr Calc Pharmacy 117.8 ml/min; Est GFR (African American) 121.2 ml/min; Est GFR (Non-African American) 104.6 ml/min; Magnesium 2.3 mg/dl (1.8-2.4); Potassium 3.7 mmol/L (3.5-5.1)
[2020-11-16] MEDS: MELATONIN 3 MG TAB PO SCH (21:07)
[2020-11-17] MEDS: PANTOprazole 40 MG in DEXTROSE 5% 100 ML IV SCH ×4 (03:22→20:35)
[2020-11-17 06:49] LABS: Basophils # (auto) 0.02 K/uL (0-0.2); Basophils % (auto) 0.3 %; Eosinophils # (auto) 0.24 K/uL (0-0.5); Eosinophils % (auto) 3.4 %; Hematocrit (blood only) 32.6 % (42-52); Hemoglobin 11.1 g/dL (14.0-18.0); Immature Granulocytes # (auto) 0.02 K/uL (0.00-0.02); Immature Granulocytes % (auto) 0.3 %; Lymphocytes # (auto) 1.73 K/uL (1.2-3.4); Lymphocytes % (auto) 24.3 %; Mean Corpuscular Hemoglobin 31.9 pg (25-34); Mean Corpuscular Volume 93.7 fL (80-100); Monocytes # (auto) 0.55 K/uL (0.11-0.59); Monocytes % (auto) 7.7 %; Neutrophils # (auto) 4.56 K/uL (1.4-6.5); Platelet Count 258 K/uL (130-400); RDW Coefficient of Variation 12.5 % (11.5-14.5); RDW Standard Deviation 42.1 fL (36.4-46.3); Red Blood Count 3.48 M/uL (4.7-6.1); White Blood Count 7.12 K/uL (4.8-10.8)
[2020-11-17 07:14] LABS: Estimated Average Glucose 123 mg/dl; Hemoglobin A1C 5.9 % (4.5-5.6)
[2020-11-17 07:20] LABS: BUN Creatinine Ratio 7.3 (10-20); Calcium 8.9 mg/dl (8.5-10.1); Creatinine Clr Calc Pharmacy 105.1 ml/min; Est GFR (African American) 115.6 ml/min; Est GFR (Non-African American) 99.8 ml/min; Potassium 3.7 mmol/L (3.5-5.1)
--- NOTE | 2020-11-17 08:45 | Gastrointestinal Consultation ---
Date of Consultation November 17, 2020 Assessment & Plan (1) Melena: Plan on EGD today with further recommendations to follow. No signs of acute ongoing bleeding at this time. History of Present Illness Reason for Consultation: MELENA Attending Physician: Marcos Bowen MD History of Present Illness This is a 56 yo presenting to ER with dark stool and some mild rectal bleeding on Tuesday 11/14. He states that he had some dark stool, with some mild rectal bleeding on Tuesday after having worked his shift. [place] weak. And presented to the ER. Since admission, his hemoglobin has been stable, his blood pressure has also been stable. He has had no evidence of any further bleeding. He has no nausea vomiting fevers or chills otherwise feels okay. States that he had ulcer several years ago and has not been taking any PPI. Allergies Allergy/AdvReac Type Severity Reaction Status Date / Time mold Allergy Intermediate CAN Verified 11/15/20 21:27 TRIGGER ASTHMA ATTACK POLLEN Allergy Intermediate CAN Uncoded 11/15/20 21:27 TRIGGER ASTHMA ATTACK Home Medications Medication Instructions Recorded Confirmed Type albuterol sulfate 90 mcg/actuation 1 - 2 puff INHALATION DIRECTED 11/15/20 11/15/20 History aerosol inhaler (Ventolin HFA) PRN amoxicillin 875 mg-potassium 1 tab PO BID 11/15/20 11/15/20 History clavulanate 125 mg tablet (Augmentin) cetirizine 10 mg tablet (Allergy 10 mg PO DAILY 11/15/20 11/15/20 History Relief (cetirizine)) diclofenac sodium 75 mg 75 mg PO BID 11/15/20 11/15/20 History tablet,delayed release fluticasone propionate 220 1 puff INHALATION BID 11/15/20 11/15/20 History mcg/actuation HFA aerosol inhaler (Flovent HFA) lorazepam 0.5 mg tablet (Ativan) 0.5 mg PO DIRECTED PRN 11/15/20 11/15/20 History melatonin 5 mg tablet 5 mg PO DAILY 11/15/20 11/15/20 History montelukast 10 mg tablet 10 mg PO DAILY 11/15/20 11/15/20 History (Singulair) simvastatin 10 mg tablet 10 mg PO DAILY 11/15/20 11/15/20 History sodium chloride 0.65 % nasal spray 2 spray INTRANASAL DIRECTED PRN 11/15/20 11/15/20 History aerosol (Saline Nasal) umeclidinium 62.5 mcg-vilanterol 1 inh INHALATION DAILY 11/15/20 11/15/20 History 25 mcg/actuation powdr for inhalation (Anoro Ellipta) Patient History Social History Smoking Status: Former smoker Tobacco Type: Cigarettes Hx Alcohol Use: No Hx Substance Use: No Preferred Language: Barbadian Communication Ability: Effective 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 Required: No Beliefs That Will Affect Care: None Current Living Situation: Alone Other Information That Helps Us Care for You: No Feels Safe at Home: Yes Safety Concerns: Feels Safe At This Time Assistive Devices: None Review of Systems Review of Systems: 10 system review of systems negative except for as stated as above Physical Exam Constitutional: WD/WN, vitals as above Cardiovascular: RRR, no murmur, no edema Gastrointestinal (Abdomen): normal bowel sounds, soft, nontender, no hepatosplenomegaly Results & Data ([facility]) Vital Signs (Past 12 Hours) Vital Signs Temp Pulse Pulse Resp BP Pulse Ox 11/17/20 07:58 82 11/17/20 07:51 36.9 C 83 18 168/98 H 98 11/17/20 04:15 36.8 C 64 18 136/76 98 11/16/20 23:37 36.9 C 77 18 112/72 96 11/16/20 22:20 70
[2020-11-17] MEDS: UMECLIDINIUM/VILANTEROL 62.5/25MCG 7 PUFFS/INHALER INH SCH (08:48)
[2020-11-17] MEDS: MONTELUKAST SODIUM 10 MG TABLET PO SCH (08:48)
[2020-11-17] MEDS: SIMVASTATIN 10 MG TAB PO SCH (08:48)
[2020-11-17] MEDS: CETIRIZINE HCL 10 MG TABLET PO SCH (08:48)
[2020-11-17] MEDS: FLUTICASONE PROPIONATE NA SPR 16 GM BTL SCH (08:48)
[2020-11-17] MEDS: FLUTICASONE FUROATE 200MCG 14 PUFFS/INHALER INH SCH (08:52)
--- NOTE | 2020-11-17 10:09 | Anesthesiology Consultation ---
Date of Service November 17, 2020 Assessment & Plan Chart Review Chart Review: Acceptable Risk for Surgery and Patient NOT seen in Pre Admission Testing Consults Requested none History Surgery Operation Date: 11/17/20 17:40 Proposed Procedures p Esophagogastroduodenoscopy Dr Zuñiga - Jimmy Zuñiga MD Height/Weight Height: 5 ft 10 in Weight: 80.4 kg Allergies Allergy/AdvReac Type Severity Reaction Status Date / Time mold Allergy Intermediate CAN Verified 11/15/20 21:27 TRIGGER ASTHMA ATTACK POLLEN Allergy Intermediate CAN Uncoded 11/15/20 21:27 TRIGGER ASTHMA ATTACK Medications Home Medications Medication Instructions Recorded Confirmed Last Taken albuterol sulfate 90 mcg/actuation 1 - 2 puff INHALATION DIRECTED 11/15/20 11/15/20 Unknown aerosol inhaler (Ventolin HFA) PRN amoxicillin 875 mg-potassium 1 tab PO BID 11/15/20 11/15/20 11/15/20 08:00 clavulanate 125 mg tablet (Augmentin) cetirizine 10 mg tablet (Allergy 10 mg PO DAILY 11/15/20 11/15/20 11/15/20 Relief (cetirizine)) diclofenac sodium 75 mg 75 mg PO BID 11/15/20 11/15/20 11/14/20 tablet,delayed release fluticasone propionate 220 1 puff INHALATION BID 11/15/20 11/15/20 11/15/20 08:00 mcg/actuation HFA aerosol inhaler (Flovent HFA) lorazepam 0.5 mg tablet (Ativan) 0.5 mg PO DIRECTED PRN 11/15/20 11/15/20 Unknown melatonin 5 mg tablet 5 mg PO DAILY 11/15/20 11/15/20 11/15/20 07:30 montelukast 10 mg tablet 10 mg PO DAILY 11/15/20 11/15/20 11/15/20 (Singulair) simvastatin 10 mg tablet 10 mg PO DAILY 11/15/20 11/15/20 11/15/20 07:30 sodium chloride 0.65 % nasal spray 2 spray INTRANASAL DIRECTED PRN 11/15/20 11/15/20 Unknown aerosol (Saline Nasal) umeclidinium 62.5 mcg-vilanterol 1 inh INHALATION DAILY 11/15/20 11/15/20 11/13/20 25 mcg/actuation powdr for inhalation (Anoro Ellipta) Active Medications Generic Name Dose Route Start Last Admin Trade Name Marco Aq PRN Reason Stop Dose Admin Cetirizine HCl 10 mg 11/16/20 09:00 11/17/20 08:48 Cetirizine Hcl 10 Mg Tablet PO 12/16/20 08:59 10 mg DAILY ISAMAR Administration Fluticasone Furoate 1 puffs 11/16/20 09:00 11/17/20 08:52 Fluticasone Furoate 200mcg 14 Puffs/Inhaler INH 12/16/20 08:59 Not Given DAILY ISAMAR Protocol Fluticasone Propionate 1 sprays 11/16/20 09:00 11/17/20 08:48 Fluticasone Propionate Na Spr 16 Gm Btl NA 12/16/20 08:59 1 sprays DAILY ISAMAR Administration Lactated Ringer's 1,000 mls @ 50 mls/hr 11/16/20 00:15 11/17/20 09:24 Lr IV 12/16/20 00:14 0 mls/hr .Q20H ISAMAR Infusion Pantoprazole Sodium 40 mg/ 100 mls @ 20 mls/hr 11/16/20 03:15 11/17/20 09:24 Dextrose IV 12/16/20 03:14 0 mg/hr Q5H ISAMAR 0 mls/hr Infusion 8 MG/HR Melatonin 3 mg 11/16/20 21:00 11/16/20 21:07 Melatonin 3 Mg Tab PO 12/16/20 20:59 3 mg HS ISAMAR Administration Montelukast Sodium 10 mg 11/16/20 09:00 11/17/20 08:48 Montelukast Sodium 10 Mg Tablet PO 12/16/20 08:59 10 mg DAILY ISAMAR Administration Simvastatin 10 mg 11/16/20 09:00 11/17/20 08:48 Simvastatin 10 Mg Tab PO 12/16/20 08:59 10 mg DAILY ISAMAR Administration Umeclidinium/Vilanterol 1 puffs 11/16/20 09:00 11/17/20 08:48 Umeclidinium/Vilanterol 62.5/25mcg 7 Puffs/Inhaler INH 12/16/20 08:59 1 puffs DAILY ISAMAR Administration NPO Date Last Intake of Fluids: 11/17/20 Time Last Intake of Fluids: 08:30 Last Intake of Fluids Comment: sips with meds Date Last Intake of Solids: 11/15/20 Time Last Intake of Solids: 05:00 Past Medical History Medical History Anemia Anxiety Asthma Diverticulitis Dyslipidemia Gastric ulcer GI bleed Hypertension Melena Osteoarthritis Rhinitis Social History Smoking Status: Former smoker Hx Alcohol Use: No Hx Substance Use: No Physical Exam Vital Signs Last Vital Signs Temp 37 C 11/17/20 09:49 Pulse 93 H 11/17/20 09:49 Resp 16 11/17/20 09:49 BP 148/97 H 11/17/20 09:49 Pulse Ox 98 11/17/20 09:49 Testing Laboratory Results 11/17/20 06:13 11/17/20 06:13 PT 10.4 Seconds (9.0-12.0) 11/16/20 00:07 INR 1.0 (0.9-1.1) 11/16/20 00:07 Hemoglobin A1c 5.9 % (4.5-5.6) H 11/15/20 20:44 Urine Color Yellow 11/15/20 23:30 Urine Appearance Clear (Clear) 11/15/20 23:30 Urine pH 7.0 (4.5-7.5) 11/15/20 23:30 Ur Specific [place] 1.025 (1.000-1.030) 11/15/20 23:30 Urine Protein Negative (Negative) 11/15/20 23:30 Urine Glucose (UA) 1+ (Negative) H 11/15/20 23:30 Urine Ketones Negative (Negative) 11/15/20 23:30 Urine Nitrite Negative (Negative) 11/15/20 23:30 Ur Leukocyte Esterase Negative (Negative) 11/15/20 23:30 Blood Type O Positive 11/15/20 23:05 Antibody Screen NEGATIVE 11/15/20 23:05 11/16/20 22:30 WBC Smear - Final Stool
--- NOTE | 2020-11-17 10:33 | GI REPORT ---
Patient Name: Kenneth Mckenna Procedure Date: 11/17/2020 9:46 AM Date of : 1965 Admit Type: Inpatient Age: 55 Gender: Male Attending MD: Jimmy Zuñiga MD Procedure: Upper GI endoscopy Providers: Jimmy Zuñiga MD Referring MD: Mark Munoz Indications: Melena Medicines: Monitored Anesthesia Care Complications: No immediate complications. Estimated blood loss: None. Estimated Blood Loss: Estimated blood loss: none. Procedure: Pre-Anesthesia Assessment: - Pre-Anesthesia Assessment: - Prior to the procedure, a History and Physical was performed, and patient medications, allergies and sensitivities were reviewed. The patient's tolerance of previous anesthesia was reviewed. Please see [employer] for complete details. - The risks and benefits of the procedure and the sedation options and risks were discussed with the patient. All questions were answered and informed consent was obtained. - Patient identification and proposed procedure were verified prior to the procedure by the physician and the nurse. The procedure was verified in the pre-procedure area in the procedure room. After obtaining informed consent, the endoscope was passed carefully and meticuously under direct vision and only advanced when the lumen was clearly identified, C02 insuflation was utilized throughout the entirity of the procedure. Throughout the procedure, the patient's blood pressure, pulse, and oxygen saturations were monitored continuously. After obtaining informed consent, the endoscope was passed under direct vision. Throughout the procedure, the patient's blood pressure, pulse, and oxygen saturations were monitored continuously. The Endoscope was introduced through the mouth, and advanced to the second part of duodenum. The upper GI endoscopy was accomplished without difficulty. The patient tolerated the procedure well. Findings: A small hiatal hernia was present. The entire examined stomach was normal. The examined duodenum was normal. Impression: - Small hiatal hernia. - Normal stomach. - Normal examined duodenum. - No specimens collected. Recommendation: - [facility]. - Clear liquid diet. - Perform a colonoscopy tomorrow. - No signs of upper GI bleeding Jimmy Zuñiga MD 11/17/2020 10:33:19 AM This report has been signed electronically. Note Initiated On: 11/17/2020 9:46 AM Number of Addenda: 0 I attest to the content of the Intraoperative Record and orders documented therein, exceptions below {[id number]}
[2020-11-17] MEDS ORDERED: LIDOCAINE 2% 2 ML VIAL/AMP(20MG/ML) INFIL ONE (10:34)
[2020-11-17] MEDS ORDERED: PROPOFOL IV EMULSION 10 MG/ML 20 ML VIAL IV ONE (10:34)
--- NOTE | 2020-11-17 11:00 | Anesthesiology Progress Note ---
Date of Service November 17, 2020 Anesthesia Post Procedure Vital Signs Vital Signs: Temp Pulse Pulse Resp BP Pulse Ox 11/17/20 10:48 87 16 145/91 H 97 11/17/20 10:33 90 16 165/75 H 97 11/17/20 09:49 37 C 93 H 16 148/97 H 98 11/17/20 07:58 82 11/17/20 07:51 36.9 C 83 18 168/98 H 98 11/17/20 04:15 36.8 C 64 18 136/76 98 11/16/20 23:37 36.9 C 77 18 112/72 96 11/16/20 22:20 70 11/16/20 19:22 36.8 C 71 18 133/81 96 11/16/20 16:00 73 11/16/20 15:05 36.6 C 87 18 131/83 97 11/16/20 11:30 37.1 C 81 18 152/83 H 97 Transfer of Care Handoff Completed per policy Notes Mental Status: alert / awake / arousable Patient Amnestic to Procedure: Yes Nausea / Vomiting: adequately controlled Pain: adequately controlled Airway Patency, RR, SpO2: stable & adequate BP & HR: stable & adequate Hydration State: stable & adequate Anesthetic Complications: no major complications apparent and Pt Satisfied with anesthetic care
[2020-11-17] MEDS ORDERED: LAVAGE SOLUTION 4000ML PO SCH (14:00)
[2020-11-17] MEDS: LACTATED RINGER'S 1,000 ML IV SCH (15:30)
--- NOTE | 2020-11-17 18:56 | Hospitalist Progress Note ---
Date of Service November 17, 2020 Assessment & Plan (1) GI bleed: Plan: Multifactorial : UGIB (differentials include PUD, NSAID gastritis) LGIB (diverticular bleed) -- Hg 11.3 to 10.4, now 11.1 --11/17/2020: Status post EGD-unremarkable --For colonoscopy tomorrow Anemia secondary to above --- monitor HTN --Monitor hyperlipidemia on statin Rx bronchial asthma, stable Prediabetes -- a1c 5.9 Diet and lifestyle modification DVT prophylaxis. SCDs Re: GI bleed Full code Disposition anticipate d/c home when medically stable plan of care discussed with patient in detail and at length all questions answered he is understanding, agreeable, comfortable with the plan of care Admission and Anticipated Discharge Date Admission Date: November 16, 2020 Subjective Follow-up for GI bleed, etc. Seen resting in bed, comfortable, not in distress, in good spirits Status post EGD States he feels okay overall No abdominal pain, nausea vomiting, fevers or chills No chest pain, palpitations, dizziness, shortness of breath Denies other symptoms Review of Systems Review of Systems: all noted and negative except for above Physical Exam Physical Exam: General- oriented x 3, not in distress, speaks in sentences with no effort or accessory muscle use Eyes- anicteric Neck- no JVD Lungs- clear breath sounds bilaterally, no rales/wheezes Heart- normal rate, regular rhythm; no murmurs Abdomen- normal bowel sounds, nondistended, soft, nontender Extremities- no pretibial edema, no calf tenderness Neuro- alert, oriented x 3; no gross focal neurologic deficits Skin- warm & dry Results & Data Results & Data ([facility]) Vital Signs (Past 12 Hours) Vital Signs Temp Pulse Pulse Resp BP Pulse Ox 11/17/20 16:16 37.0 C 90 18 158/86 H 95 11/17/20 15:55 98 H 11/17/20 11:50 36.9 C 86 18 142/89 H 98 11/17/20 11:13 36.9 C 78 16 138/84 98 11/17/20 11:01 92 H 16 128/83 97 11/17/20 10:48 87 16 145/91 H 97 11/17/20 10:33 90 16 165/75 H 97 11/17/20 09:49 37 C 93 H 16 148/97 H 98 11/17/20 07:58 82 11/17/20 07:51 36.9 C 83 18 168/98 H 98 all noted and reviewed including below (1) GI bleed GI bleed type/associated pathology: melena Qualified Code(s): K92.1 - Melena
[2020-11-17] MEDS: MELATONIN 3 MG TAB PO SCH (21:05)
[2020-11-18] MEDS: PANTOprazole 40 MG in DEXTROSE 5% 100 ML IV SCH ×2 (01:28→06:03)
[2020-11-18 06:56] LABS: Basophils # (auto) 0.03 K/uL (0-0.2); Basophils % (auto) 0.4 %; Eosinophils # (auto) 0.19 K/uL (0-0.5); Eosinophils % (auto) 2.8 %; Hematocrit (blood only) 32.6 % (42-52); Hemoglobin 11.1 g/dL (14.0-18.0); Immature Granulocytes # (auto) 0.02 K/uL (0.00-0.02); Immature Granulocytes % (auto) 0.3 %; Lymphocytes # (auto) 2.05 K/uL (1.2-3.4); Lymphocytes % (auto) 29.8 %; Mean Corpuscular Volume 93.9 fL (80-100); Mean Platelet Volume 9.3 fL (7.4-10.4); Monocytes # (auto) 0.48 K/uL (0.11-0.59); Neutrophils # (auto) 4.12 K/uL (1.4-6.5); Neutrophils % (auto) 59.7 %; Platelet Count 270 K/uL (130-400); RDW Coefficient of Variation 12.6 % (11.5-14.5); RDW Standard Deviation 42.7 fL (36.4-46.3); Red Blood Count 3.47 M/uL (4.7-6.1); White Blood Count 6.89 K/uL (4.8-10.8)
[2020-11-18 07:27] LABS: BUN Creatinine Ratio 5.6 (10-20); Calcium 8.8 mg/dl (8.5-10.1); Creatinine Clr Calc Pharmacy 105.1 ml/min; Est GFR (African American) 115.6 ml/min; Est GFR (Non-African American) 99.8 ml/min; Potassium 3.7 mmol/L (3.5-5.1)
[2020-11-18] MEDS ORDERED: ePHEDrine sulfate 50 MG/ML AMP IV PRN (08:23)
[2020-11-18] MEDS ORDERED: ATROPINE SULFATE 0.1 MG/ML 10ML SYR IV PRN (08:23)
--- NOTE | 2020-11-18 08:23 | Anesthesiology Consultation ---
Date of Service November 18, 2020 Assessment & Plan Chart Review Chart Review: Acceptable Risk for Surgery and Patient NOT seen in Pre Admission Testing Consults Requested none ASA ASA3 Proposed Anesthesia Anesthesia Type: MAC Risk / Benefits Reviewed With: PT / POA / Parent / Guardian, Accepts Plan and Informed Consent Obtained Additional Comments: covid test neg. History Surgery Operation Date: 11/17/20 17:40 Proposed Procedures p Esophagogastroduodenoscopy Dr Yogesh Zuñiga MD Operation Date: 11/18/20 16:30 Proposed Procedures p Colonoscopy Dr Yogesh Zuñiga MD Height/Weight Height: 5 ft 10 in Weight: 79.9 kg Allergies Allergy/AdvReac Type Severity Reaction Status Date / Time mold Allergy Intermediate CAN Verified 11/18/20 07:54 TRIGGER ASTHMA ATTACK POLLEN Allergy Intermediate CAN Uncoded 11/18/20 07:54 TRIGGER ASTHMA ATTACK Medications Home Medications Medication Instructions Recorded Confirmed Last Taken albuterol sulfate 90 mcg/actuation 1 - 2 puff INHALATION DIRECTED 11/15/20 11/15/20 Unknown aerosol inhaler (Ventolin HFA) PRN amoxicillin 875 mg-potassium 1 tab PO BID 11/15/20 11/15/20 11/15/20 08:00 clavulanate 125 mg tablet (Augmentin) cetirizine 10 mg tablet (Allergy 10 mg PO DAILY 11/15/20 11/15/20 11/15/20 Relief (cetirizine)) diclofenac sodium 75 mg 75 mg PO BID 11/15/20 11/15/20 11/14/20 tablet,delayed release fluticasone propionate 220 1 puff INHALATION BID 11/15/20 11/15/20 11/15/20 08:00 mcg/actuation HFA aerosol inhaler (Flovent HFA) lorazepam 0.5 mg tablet (Ativan) 0.5 mg PO DIRECTED PRN 11/15/20 11/15/20 Unknown melatonin 5 mg tablet 5 mg PO DAILY 11/15/20 11/15/20 11/15/20 07:30 montelukast 10 mg tablet 10 mg PO DAILY 11/15/20 11/15/20 11/15/20 (Singulair) simvastatin 10 mg tablet 10 mg PO DAILY 11/15/20 11/15/20 11/15/20 07:30 sodium chloride 0.65 % nasal spray 2 spray INTRANASAL DIRECTED PRN 11/15/20 11/15/20 Unknown aerosol (Saline Nasal) umeclidinium 62.5 mcg-vilanterol 1 inh INHALATION DAILY 11/15/20 11/15/20 11/13/20 25 mcg/actuation powdr for inhalation (Anoro Ellipta) Active Medications Generic Name Dose Route Start Last Admin Trade Name Freq PRN Reason Stop Dose Admin Cetirizine HCl 10 mg 11/16/20 09:00 11/17/20 08:48 Cetirizine Hcl 10 Mg Tablet PO 12/16/20 08:59 10 mg DAILY ISAMAR Administration Fluticasone Furoate 1 puffs 11/16/20 09:00 11/17/20 08:52 Fluticasone Furoate 200mcg 14 Puffs/Inhaler INH 12/16/20 08:59 Not Given DAILY ISAMAR Protocol Fluticasone Propionate 1 sprays 11/16/20 09:00 11/17/20 08:48 Fluticasone Propionate Na Spr 16 Gm Btl NA 12/16/20 08:59 1 sprays DAILY ISAMAR Administration Lactated Ringer's 1,000 mls @ 50 mls/hr 11/16/20 00:15 11/17/20 15:30 Lr IV 12/16/20 00:14 50 mls/hr .Q20H ISAMAR Administration Pantoprazole Sodium 40 mg/ 100 mls @ 20 mls/hr 11/16/20 03:15 11/18/20 06:03 Dextrose IV 12/16/20 03:14 8 mg/hr Q5H ISAMAR 20 mls/hr Administration 8 MG/HR Melatonin 3 mg 11/16/20 21:00 11/17/20 21:05 Melatonin 3 Mg Tab PO 12/16/20 20:59 3 mg HS ISAMAR Administration Montelukast Sodium 10 mg 11/16/20 09:00 11/17/20 08:48 Montelukast Sodium 10 Mg Tablet PO 12/16/20 08:59 10 mg DAILY ISAMAR Administration Simvastatin 10 mg 11/16/20 09:00 11/17/20 08:48 Simvastatin 10 Mg Tab PO 12/16/20 08:59 10 mg DAILY ISAMAR Administration Umeclidinium/Vilanterol 1 puffs 11/16/20 09:00 11/17/20 08:48 Umeclidinium/Vilanterol 62.5/25mcg 7 Puffs/Inhaler INH 12/16/20 08:59 1 puffs DAILY ISAMAR Administration NPO Date Last Intake of Fluids: 11/18/20 Time Last Intake of Fluids: 02:00 Last Intake of Fluids Comment: sip of water Date Last Intake of Solids: 11/17/20 Time Last Intake of Solids: 14:00 Past Medical History Medical History Anemia Anxiety Asthma Diverticulitis Dyslipidemia Gastric ulcer GI bleed Hypertension Melena Osteoarthritis Rhinitis Exercise / Class Metabolic Activity II 4-5 Yardwork/Stairs/Walk up hill Past Anesthesia History No Hx of Anesthesia Complications and No Family Hx of Anesthesia Complications History of PONV No Hx of PONV and No Hx of Motion Sickness Social History Smoking Status: Former smoker Hx Alcohol Use: No Hx Substance Use: No Physical Exam Vital Signs Last Vital Signs Temp 36.8 C 11/18/20 07:57 Pulse 92 H 11/18/20 07:57 Resp 18 11/18/20 07:57 BP 178/100 H 11/18/20 07:57 Pulse Ox 96 11/18/20 07:57 Constitutional not obese ENMT Mouth: no dentition abnormality Thyromental Distance: > or= 3.5 Finger Breadths Mallampati Class: II Neck normal visual inspection, trachea midline and + facial hair; neck extension not limited Respiratory normal respiratory effort Auscultation: lungs clear to auscultation bilaterally Cardiovascular Rate/Rhythm: regular rate and regular rhythm Heart Sounds: no murmur Vessels: no carotid bruit Musculoskeletal Spine: normal cervical ROM Extremities: extremities normal to inspection Neurologic moves all extremities Motor/Sensory: no sensory deficit Psychiatric Orientation: alert and oriented x 3 Testing Laboratory Results 11/18/20 06:02 11/18/20 06:02 PT 10.4 Seconds (9.0-12.0) 11/16/20 00:07 INR 1.0 (0.9-1.1) 11/16/20 00:07 Hemoglobin A1c 5.9 % (4.5-5.6) H 11/15/20 20:44 Urine Color Yellow 11/15/20 23:30 Urine Appearance Clear (Clear) 11/15/20 23:30 Urine pH 7.0 (4.5-7.5) 11/15/20 23:30 Ur Specific Golden 1.025 (1.000-1.030) 11/15/20 23:30 Urine Protein Negative (Negative) 11/15/20 23:30 Urine Glucose (UA) 1+ (Negative) H 11/15/20 23:30 Urine Ketones Negative (Negative) 11/15/20 23:30 Urine Nitrite Negative (Negative) 11/15/20 23:30 Ur Leukocyte Esterase Negative (Negative) 11/15/20 23:30 Blood Type O Positive 11/15/20 23:05 Antibody Screen NEGATIVE 11/15/20 23:05 11/16/20 22:30 WBC Smear - Final Stool
[2020-11-18] MEDS ORDERED: MIDAZOLAM HCL 1 MG/ML 2ML VIAL ONE (08:26)
[2020-11-18] MEDS ORDERED: PROPOFOL IV EMULSION 10 MG/ML 20 ML VIAL IV ONE ×2 (08:27→09:11)
[2020-11-18] MEDS ORDERED: LIDOCAINE 2% 2 ML VIAL/AMP(20MG/ML) INFIL ONE (08:27)
[2020-11-18] MEDS ORDERED: ONDANSETRON INJ 2 MG/ML 2 ML VIAL ONE (08:31)
--- NOTE | 2020-11-18 08:34 | Gastroenterology Progress Note ---
Date of Service November 18, 2020 Assessment & Plan (1) Hematochezia: Plan: Plan for colonoscopy today Admission and Anticipated Discharge Date Admission Date: November 16, 2020 Subjective No bleeding overnight, tolerated prep Physical Exam Constitutional: WD/WN, vitals as above Cardiovascular: RRR, no murmur, no edema Gastrointestinal (Abdomen): normal bowel sounds, soft, nontender, no hepatosplenomegaly Results & Data ([facility]) Vital Signs (Past 12 Hours) Vital Signs Temp Pulse Pulse Resp BP Pulse Ox 11/18/20 07:57 36.8 C 92 H 18 178/100 H 96 11/18/20 07:50 36.8 C 68 18 164/91 H 97 11/18/20 04:00 36.9 C 69 18 157/78 H 94 11/18/20 01:08 76 11/17/20 23:12 36.9 C 66 20 131/75 97
--- NOTE | 2020-11-18 09:33 | GI REPORT ---
Patient Name: Kenneth Mckenna Procedure Date: 11/18/2020 8:42 AM Date of : 1965 Admit Type: Inpatient Age: 55 Gender: Male Attending MD: Jimmy Zuñiga MD Procedure: Colonoscopy Providers: Jimmy Zuñiga MD Referring MD: Maria T Griggs Indications: Hematochezia Medicines: Monitored Anesthesia Care Complications: No immediate complications. Estimated blood loss: None. Estimated Blood Loss: Estimated blood loss: none. Procedure: Pre-Anesthesia Assessment: - Pre-Anesthesia Assessment: - Prior to the procedure, a History and Physical was performed, and patient medications, allergies and sensitivities were reviewed. The patient's tolerance of previous anesthesia was reviewed. Please see [email or web address] for complete details. - The risks and benefits of the procedure and the sedation options and risks were discussed with the patient. All questions were answered and informed consent was obtained. - Patient identification and proposed procedure were verified prior to the procedure by the physician and the nurse. The procedure was verified in the pre-procedure area in the procedure room. After obtaining informed consent, the endoscope was passed carefully and meticuously under direct vision and only advanced when the lumen was clearly identified, C02 insuflation was utilized throughout the entirity of the procedure. Throughout the procedure, the patient's blood pressure, pulse, and oxygen saturations were monitored continuously. After I obtained informed consent, the scope was passed under direct vision. Throughout the procedure, the patient's blood pressure, pulse, and oxygen saturations were monitored continuously. The Colonoscope was introduced through the anus and advanced to the cecum, identified by appendiceal orifice and ileocecal valve. The colonoscopy was performed without difficulty. The patient tolerated the procedure well. The quality of the bowel preparation was poor. Findings: A 4 mm polyp was found in the ascending colon. The polyp was sessile. The polyp was removed with a cold snare. Resection and retrieval were complete. Multiple small-mouthed diverticula were found in the sigmoid colon and ascending colon. Green Stool in colon, no signs of bleeding. Prep quality was not consistent with ability to be considered a screening examination. Impression: - Preparation of the colon was poor. - One 4 mm polyp in the ascending colon, removed with a cold snare. Resected and retrieved. - Diverticulosis in the sigmoid colon and in the ascending colon. Recommendation: - [facility] same day. - No etiology bleeding other than possible diverticular in etiology. - Will need repeat colonoscopy for screening as outpatient - If bleeding returns then will need to present to CAMILA Zuñiga MD 11/18/2020 9:33:17 AM This report has been signed electronically. Note Initiated On: 11/18/2020 8:42 AM Number of Addenda: 0 I attest to the content of the Intraoperative Record and orders documented therein, exceptions below {[id number]}
--- NOTE | 2020-11-18 09:45 | Anesthesiology Progress Note ---
Date of Service November 18, 2020 Anesthesia Post Procedure Vital Signs Vital Signs: Temp Pulse Pulse Resp BP Pulse Ox 11/18/20 09:28 84 18 147/95 H 97 11/18/20 09:14 91 H 18 155/103 H 97 11/18/20 07:57 36.8 C 92 H 18 178/100 H 96 11/18/20 07:50 36.8 C 68 18 164/91 H 97 11/18/20 04:00 36.9 C 69 18 157/78 H 94 11/18/20 01:08 76 11/17/20 23:12 36.9 C 66 20 131/75 97 11/17/20 19:10 36.9 C 114 H 20 137/84 94 11/17/20 16:16 37.0 C 90 18 158/86 H 95 11/17/20 15:55 98 H 11/17/20 11:50 36.9 C 86 18 142/89 H 98 11/17/20 11:13 36.9 C 78 16 138/84 98 11/17/20 11:01 92 H 16 128/83 97 11/17/20 10:48 87 16 145/91 H 97 11/17/20 10:33 90 16 165/75 H 97 11/17/20 09:49 37 C 93 H 16 148/97 H 98 Transfer of Care Handoff Completed per policy Notes Mental Status: alert / awake / arousable Patient Amnestic to Procedure: Yes Nausea / Vomiting: adequately controlled Pain: adequately controlled Airway Patency, RR, SpO2: stable & adequate BP & HR: stable & adequate Hydration State: stable & adequate Anesthetic Complications: no major complications apparent
[2020-11-18] MEDS: FLUTICASONE PROPIONATE NA SPR 16 GM BTL SCH (09:49)
[2020-11-18] MEDS: UMECLIDINIUM/VILANTEROL 62.5/25MCG 7 PUFFS/INHALER INH SCH (09:49)
[2020-11-18] MEDS: FLUTICASONE FUROATE 200MCG 14 PUFFS/INHALER INH SCH (09:49)
[2020-11-18] MEDS: SIMVASTATIN 10 MG TAB PO SCH (09:55)
[2020-11-18] MEDS: MONTELUKAST SODIUM 10 MG TABLET PO SCH (09:55)
[2020-11-18] MEDS: CETIRIZINE HCL 10 MG TABLET PO SCH (09:56)
--- NOTE | 2020-11-18 13:20 | Hospitalist Progress Note ---
Date of Service November 18, 2020 Assessment & Plan (1) GI bleed: Plan: Likely secondary to diverticular bleed History of chronic diverticulosis In the setting of diclofenac use 11/17/2020: Status post EGD-small hiatal hernia, normal stomach, normal examined duodenum, no specimens collected 11/18/2020: Status post colonoscopy-preparation of the colon was poor, one 4 mm polyp in the ascending colon, removed with a cold snare, resected and retrieved Diverticulosis in the sigmoid colon and ascending colon Above procedures performed by [facility] dental service chief Dr. Jimmy sanchez No etiology of bleeding other than possible diverticular bleeding No recurrence of GI bleed while inpatient Hemoglobin stayed stable around 11 Anemia panel within normal limits Follow-up with dental service chief in 2 weeks Follow-up polyp biopsy, will need repeat outpatient colonoscopy for screening Advised to discontinue diclofenac and not use NSAIDs Follow-up with PCP in 1 week Anemia secondary to above --Repeat CBC on follow-up with PCP this week HTN --Systolic BP 130s to 140s Monitor as an outpatient hyperlipidemia on statin Rx bronchial asthma, stable Prediabetes -- a1c 5.9 Diet and lifestyle modification Follow-up as an outpatient DVT prophylaxis. SCDs Re: GI bleed Full code Disposition Discharge to home Follow-up with PCP in 1 week Follow-up with dental service chief at [facility] in 2 weeks plan of care discussed with patient in detail and at length all questions answered he is understanding, agreeable, comfortable with the plan of care Admission and Anticipated Discharge Date Admission Date: November 16, 2020 Subjective FF UP FOR GI BLEED, ETC seen resting in bed, comfortable in good spirits s/p Colonoscopy states he feels fine overall tolerated diet well no abdominal pain, nausea/vomiting, fever/chills no chest pain, dyspnea, palpitations, dizziness no other symptoms Review of Systems Review of Systems: all noted and negative except for above Physical Exam Physical Exam: General- oriented x 3, not in distress, speaks in sentences with no effort or accessory muscle use Eyes- anicteric Neck- no JVD Lungs- clear BS BL no rales/wheezing no other symptoms Heart- normal rate, regular rhythm; no murmurs Abdomen- normal bowel sounds, nondistended, soft, nontender no LLQ tenderness Extremities- no pretibial edema, no calf tenderness Neuro- alert, oriented x 3; no gross focal neurologic deficits Skin- warm & dry Results & Data Results & Data ([facility]) Vital Signs (Past 12 Hours) Vital Signs Temp Pulse Resp BP Pulse Ox 11/18/20 11:40 36.7 C 68 18 140/82 95 11/18/20 09:43 78 18 136/91 97 11/18/20 09:28 84 18 147/95 H 97 11/18/20 09:14 91 H 18 155/103 H 97 11/18/20 07:57 36.8 C 92 H 18 178/100 H 96 11/18/20 07:50 36.8 C 68 18 164/91 H 97 11/18/20 04:00 36.9 C 69 18 157/78 H 94 all noted and reviewed including below (1) GI bleed GI bleed type/associated pathology: melena Qualified Code(s): K92.1 - Melena
--- NOTE | 2020-11-18 13:32 | Discharge Summary ---
Date of Service November 18, 2020 Admission HPI Per Admitting Provider History obtained from patient and records. Medical history significant for HTN, hyperlipidemia, bronchial asthma, allergic rhinitis, osteoarthritis, history of stomach ulcer, diverticulosis. 20 years ago patient had melanotic stools. EGD/colonoscopy at a hospital in [facility] showed stomach ulcers and diverticulosis. Patient was on Prevacid for a short time. 2 nights ago, patient noted multiple bloody bowel movements mixed with melanotic stool without abdominal pain. No fever, no chills, no chest pain, no S OB. No recent antibiotic Rx. Patient admits to taking daily diclofenac for right knee arthritis. Voluntary weight loss as per patient account. Patient self medicated with leftover Augmentin prescription at home. Patient consulted ER. Protonix bolus administered at the ER. 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 Admission Exam (Per Admitting) Constitutional GENERAL: Comfortable, pleasant, no respiratory distress SKIN: Pallor, warm HEENT: Pale palpebral conjunctivae, no ptosis, dry buccal mucosa NECK : Supple, no tenderness CHEST : CTA, no tenderness HEART : RRR, no obvious murmurs ABDOMEN: Some distention, nontender EXTREMITIES : No LE swelling, minimal right knee tenderness, no other conspicuous deformities noted NEUROLOGIC : Coherent, no facial asymmetry, no other gross focality Discharge Data Consultations 11/15/20 23:12 ED Decision to Admit Stat 11/16/20 01:28 Consult Gastroenterology Routine Procedures Performed Operation Date: 11/17/20 17:40 Actual Procedures p Esophagogastroduodenoscopy - Jimmy Zuñiga MD Operation Date: 11/18/20 16:30 Actual Procedures p Colonoscopy Polypectomy - Jimmy Zuñiga MD CT abd pelvis IV con only CLINICAL INDICATION: [place] ^GI bleed, eval colitis/divert. TECHNIQUE: Helical axial images of the abdomen and pelvis were obtained and displayed at 5 and 1 mm intervals. Automated dose lowering techniques and/or adjustment according to patient size were utilized for this exam. This exam was performed with intravenous contrast. COMPARISON: None available at the time of this dictation. FINDINGS: Lower chest: No acute abnormality Liver: Unremarkable. No focal lesions are seen. Gallbladder and biliary tree: No calcified gallstones. Normal caliber wall. No intra- or extrahepatic biliary ductal dilation. Pancreas: Unremarkable, no focal lesions. Spleen: Unremarkable. Adrenals: Unremarkable. Kidneys and ureters: Unremarkable. Bladder: Unremarkable. Reproductive organs: Unremarkable. Bowel: Diverticulosis is seen without evidence of diverticulitis. The appendix is unremarkable. Lymph nodes Retroperitoneal: Unremarkable. Mesenteric: Unremarkable. Pelvic: Unremarkable. Peritoneum: Normal Vessels: Unremarkable. Abdominal wall: Left fat containing inguinal hernia. Bones: Degenerative changes in the visualized spine. IMPRESSION: No evidence of acute abnormality. Diverticulosis is seen without evidence of diverticulitis. No evidence of colitis. ACT 112: Negative or not required by law. Electronically signed by: David Smith M.D. 11/15/2020 9:49 PM Hospital Course (1) GI bleed: Acute GI bleed likely secondary to diverticular bleed History of chronic diverticulosis In the setting of diclofenac use 11/17/2020: Status post EGD-small hiatal hernia, normal stomach, normal examined duodenum, no specimens collected 11/18/2020: Status post colonoscopy-preparation of the colon was poor, one 4 mm polyp in the ascending colon, removed with a cold snare, resected and retrieved Diverticulosis in the sigmoid colon and ascending colon Above procedures performed by [facility] import export coordinator Dr. Jimmy zuñiga No etiology of bleeding other than possible diverticular bleeding No recurrence of GI bleed while inpatient Hemoglobin stayed stable around 11 Anemia panel within normal limits Follow-up with import export coordinator in 2 weeks Follow-up polyp biopsy, will need repeat outpatient colonoscopy for screening Advised to discontinue diclofenac and not use NSAIDs Follow-up with PCP in 1 week Anemia secondary to above --Repeat CBC on follow-up with PCP this week HTN --Systolic BP 130s to 140s Monitor as an outpatient Dyslipidemia on statin Rx Bronchial asthma, stable Prediabetes -- a1c 5.9 Diet and lifestyle modification Follow-up as an outpatient Disposition Discharge to home Follow-up with PCP in 1 week Follow-up with import export coordinator at [facility] in 2 weeks plan of care discussed with patient in detail and at length all questions answered he is understanding, agreeable, comfortable with the plan of care
== END 2020-11-18 15:00 | disposition home or self-care (01) ==
LOC: 2N 20:12 → ED 20:12 → 2N 11-16 01:07